=== PATIENT | male | born 2005 | race Caucasian/White ===

== ENCOUNTER 2023-06-13 22:48 | Emergency (ER) | payer BC ==
[2023-06-14] MEDS ORDERED: Ibuprofen 800 MG TAB ONE (00:33)
== END 2023-06-14 00:35 | disposition home or self-care (01) ==
LOC: MADERS 22:48
DX: S20.229A Contusion of unspecified back wall of thorax, initial encounter (principal); W18.30XA Fall on same level, unspecified, initial encounter
CPT/HCPCS: 72128; 72131